=== PATIENT | female | born 2005 | race African-American/Black ===

== ENCOUNTER 2024-08-17 03:59 | Emergency (ER) | payer MEDICAID ==
[~2024-08-17] VITALS: Ht 167.6 cm; Wt 51.0 kg
[2024-08-17 04:07] VITALS: O2SAT 100
[2024-08-17] MEDS: DIPHENHYDRAMINE 25MG CAPSULE PO ONE (05:28)
[2024-08-17] MEDS: METOCLOPRAMIDE HCL 10MG TABLET PO ONE (05:28)
[2024-08-17] MEDS: ACETAMINOPHEN 500MG TABLET PO ONE (05:29)
[2024-08-17] MEDS ORDERED: ACET-2708 MT (06:59)
[2024-08-17 07:16] VITALS: BP 119/79; PULSE 87; RESP 18; TEMP 36.8; O2SAT 100
== END 2024-08-17 07:20 | disposition home or self-care (01) ==
LOC: ER 03:59
DX: S05.12XA Contusion of eyeball and orbital tissues, left eye, initial encounter (principal); S09.90XA Unspecified injury of head, initial encounter; Y08.89XA Assault by other specified means, initial encounter; Y93.89 Activity, other specified; Y92.89 Other specified places as the place of occurrence of the external cause; Y99.8 Other external cause status
CPT/HCPCS: 99284; 70450; 81025; 70486; Q0163; J8597